=== PATIENT | male | born 1995 | race Caucasian/White ===

== ENCOUNTER 2017-10-18 13:50 | Emergency (ER) | payer OTHER ==
[~2017-10-18] VITALS: Ht 177.8 cm; Wt 64.2 kg
[2017-10-18 14:03] VITALS: TEMP 37; Ht 177.8 cm; Wt 64.2 kg
[2017-10-18 14:10] VITALS: O2SAT 98
[2017-10-18] MEDS ORDERED: SODIUM CHLORIDE 0.9% 1000ML 1,000 ML IV STA (14:13)
[2017-10-18] MEDS ORDERED: ONDANSETRON INJ 2 MG/ML 2 ML VIAL IV STA (14:13)
[2017-10-18] MEDS ORDERED: LORAZEPAM 2 MG/ML 1 ML VIAL IV STA (14:13)
--- NOTE | 2017-10-18 14:15 | EMERGENCY ROOM VISIT NOTE ---
History Report prepared by Yuridia: Sweetie Gayle Under the Supervision of: Dr. Dileep Castro D.O. First contact with patient: 14:10 Chief Complaint: TACHYCARDIA Stated Complaint: RAPID HEART BEAT, SHAKY, DIZZY History of Present Illness The patient is a 22 year old male who presents to the Emergency Room with complaints of palpitations. The patient states that he was a class when he noticed an acute onset of palpitations and heart racing. He had chest pain and shortness of breath initially but this is since resolved. The patient admits that he took Adderall one orange pill at approximately oh 830 this morning. He also took 2 double shots of [employer] espresso. He also took another pill of Adderall last evening. This medication is not his medication however he was using to try to stay awake to study longer. The patient states his symptoms were very moderate to severe initially but they have since improved somewhat. He denies having any recent fevers or chills. He denies having any nausea or vomiting. The patient states that he has taken this medication before but feels he may have taken too much. He denies having any headaches. Source of History: patient Onset: earlier today Position: other (global) Symptom Intensity: moderate Quality: other (palpitations) Timing: other (persistent) Associated Symptoms: + chest pain, + SOB, No fevers, No chills, No headache , No nausea, No vomiting Review of Systems See HPI for pertinent positives & negatives. A total of 10 systems reviewed and were otherwise negative. Past Medical & Surgical Medical Problems: (1) Asthma (2) Diabetes Family History No pertinent family history stated. Social History Smoking Status: Current Every Day Smoker Smokeless Tobacco Use: Yes Alcohol Use: occasionally Drug Use: marijuana Marital Status: single Housing Status: lives with roommate Current/Historical Medications Scheduled Insulin Aspart (Novolog), 3 UNITS SQ 15 grams of carbs Insulin Glargine (Lantus Solostar), 3 UNITS SC AMPM Allergies Coded Allergies: No Known Allergies (Unverified , 10/18/17) Physical Exam Vital Signs Date Time Temp Pulse Resp B/P (MAP) Pulse Ox O2 Delivery O2 Flow Rate FiO2 10/18/17 16:23 97 16 133/86 100 10/18/17 15:22 95 20 109/94 99 Room Air 10/18/17 14:17 132 10/18/17 14:10 98 Room Air 10/18/17 14:03 37.0 163 18 153/79 99 Room Air Physical Exam GENERAL: Patient is awake and alert. He appears mildly anxious but comfortable. EYES: The conjunctivae are clear. The pupils dilated and reactive to light bilaterally. EARS, NOSE, MOUTH AND THROAT: The nose is without any evidence of any deformity. Mucous membranes are moist tongue is midline NECK: The neck is nontender and supple. RESPIRATORY: Normal respiratory effort is noted there is no evidence of wheezing rhonchi or rales CARDIOVASCULAR: Tachycardic rate with regular rhythm was noted. There was no definite murmur noted auscultation. GASTROINTESTINAL: The abdomen is soft. Bowel sounds are present in all quadrants. Abdomen is nontender MUSCULOSKELETAL/EXTREMITIES: There is no evidence of gross deformity full range of motion is noted in the hips and shoulders SKIN: There is no obvious evidence of any rash. There are no petechiae, pallor or cyanosis noted. NEUROLOGIC: Patient is awake alert and oriented x3 strength is symmetric patellar reflexes are 2+ bilaterally Medical Decision & Procedures ER Provider Diagnostic Interpretation: X-ray results as stated below per interpretation by me and the radiologist. CHEST ONE VIEW PORTABLE CLINICAL HISTORY: palpitations cardiac arrhythmia COMPARISON STUDY: No previous studies for comparison. FINDINGS: The bones soft tissues and hemidiaphragms are normal. The cardiomediastinal silhouette is normal. The lungs are clear. The pulmonary vasculature is normal. IMPRESSION: Negative chest. The above report was generated using voice recognition software. It may contain grammatical, syntax or spelling errors. Electronically signed by: Moncho Castillo M.D. 10/18/2017 2:50 PM Dictated Date/Time: 10/18/2017 2:50 PM Laboratory Results 10/18/17 14:30 Red Blood Count 5.37, Mean Corpuscular Volume 87.2, Mean Corpuscular Hemoglobin 31.7, Mean Corpuscular Hemoglobin Concent 36.3, Mean Platelet Volume 9.8, Neutrophils (%) (Auto) 76.0, Lymphocytes (%) (Auto) 14.5, Monocytes (%) (Auto) 7.3, Eosinophils (%) (Auto) 1.2, Basophils (%) (Auto) 0.6, Neutrophils # (Auto) 7.57, Lymphocytes # (Auto) 1.45, Monocytes # (Auto) 0.73, Eosinophils # (Auto) 0.12, Basophils # (Auto) 0.06 10/18/17 14:30 Test 10/18/17 14:30 10/18/17 15:30 White Blood Count 9.97 K/uL (4.8-10.8) Red Blood Count 5.37 M/uL (4.7-6.1) Hemoglobin 17.0 g/dL (14.0-18.0) Hematocrit 46.8 % (42-52) Mean Corpuscular Volume 87.2 fL (80-100) Mean Corpuscular Hemoglobin 31.7 pg (25-34) Mean Corpuscular Hemoglobin Concent 36.3 g/dl (32-36) Platelet Count 246 K/uL (130-400) Mean Platelet Volume 9.8 fL (7.4-10.4) Neutrophils (%) (Auto) 76.0 % Lymphocytes (%) (Auto) 14.5 % Monocytes (%) (Auto) 7.3 % Eosinophils (%) (Auto) 1.2 % Basophils (%) (Auto) 0.6 % Neutrophils # (Auto) 7.57 K/uL (1.4-6.5) Lymphocytes # (Auto) 1.45 K/uL (1.2-3.4) Monocytes # (Auto) 0.73 K/uL (0.11-0.59) Eosinophils # (Auto) 0.12 K/uL (0-0.5) Basophils # (Auto) 0.06 K/uL (0-0.2) RDW Standard Deviation 39.2 fL (36.4-46.3) RDW Coefficient of Variation 12.3 % (11.5-14.5) Immature Granulocyte % (Auto) 0.4 % Immature Granulocyte # (Auto) 0.04 K/uL (0.00-0.02) Anion Gap 11.0 mmol/L (3-11) Est Creatinine Clear Calc Drug Dose 87.0 ml/min Estimated GFR () 97.3 Estimated GFR (Non- 84.0 BUN/Creatinine Ratio 12.1 (10-20) Calcium Level 9.5 mg/dl (8.5-10.1) Magnesium Level 1.9 mg/dl (1.8-2.4) Total Bilirubin 0.7 mg/dl (0.2-1) Direct Bilirubin 0.2 mg/dl (0-0.2) Aspartate Amino Transf (AST/SGOT) 14 U/L (15-37) Alanine Aminotransferase (ALT/SGPT) 20 U/L (12-78) Alkaline Phosphatase 93 U/L (45-117) Total Creatine Kinase 141 U/L (39-308) Creatine Kinase MB 1.8 ng/ml (0.5-3.6) Creatine Kinase MB Ratio 1.3 (0-3.0) Troponin I < 0.015 ng/ml (0-0.045) Total Protein 8.0 gm/dl (6.4-8.2) Albumin 4.2 gm/dl (3.4-5.0) Lipase 52 U/L (73-393) Thyroid Stimulating Hormone (TSH) 3.020 uIu/ml (0.300-4.500) Urine Color DK YELLOW Urine Appearance CLEAR (CLEAR) Urine pH 5.5 (4.5-7.5) Urine Specific [place] 1.027 (1.000-1.030) Urine Protein 1+ (NEG) Urine Glucose (UA) NEG (NEG) Urine Ketones 3+ (NEG) Urine Occult Blood NEG (NEG) Urine Nitrite NEG (NEG) Urine Bilirubin NEG (NEG) Urine Urobilinogen NEG (NEG) Urine Leukocyte Esterase NEG (NEG) Urine WBC (Auto) 1-5 /hpf (0-5) Urine RBC (Auto) 0-4 /hpf (0-4) Urine Hyaline Casts (Auto) 5-10 /lpf (0-5) Urine Epithelial Cells (Auto) 10-20 /lpf (0-5) Urine Bacteria (Auto) NEG (NEG) Urine Pathogenic Casts /lpf (0) Urine Mucus PRESENT (NONE PRSENT) Laboratory results per my review. Medications Administered Medications (Trade) Dose Ordered Sig/Fay Route Start Time Stop Time Status Last Admin Dose Admin Sodium Chloride 1,000 ml @ 999 mls/hr Q1H1M STAT IV 10/18/17 14:13 10/18/17 15:13 DC 10/18/17 14:32 999 MLS/HR Lorazepam (Ativan Inj) 1 mg NOW STAT IV 10/18/17 14:13 10/18/17 14:14 DC 10/18/17 14:50 1 MG ECG Indication: palpitations Rate (beats per minute): 131 Rhythm: sinus tachycardia Findings: no acute ischemic change, no ectopy Comparison ECG Date: no prior available ED Course 1412: The patient was evaluated in room A3. A complete history and physical examination were performed. 1413: Lorazepam 1 mg IV, NSS 1000 ml @ 999 mls/hr IV. 1455: I reevaluated the patient. He is feeling better. 1553: Upon reevaluation, the patient is resting comfortably. I discussed the results and treatment plan with him. He verbalized agreement of the treatment plan. He was discharged home. Medical Decision Prior records/ancillary studies reviewed. Triage Nursing notes reviewed. The patient's history was concerning for palpitations. Differential diagnosis: Etiologies such as premature contractions, electrolyte abnormality, cardiac dysrhythmia, thyroid dysfunction, pulmonary embolism, infection, gastrointestinal, as well as others were entertained. The patient is a 22-year-old male who presented to the emergency department for an evaluation of palpitations. The patient recently took caffeine supplements as well as Adderall. He states he started developing palpitations and anxiety earlier in the day class. The patient arrived at the emergency apartment by ambulance. He was treated with IV fluids and IV Ativan. On subsequent reevaluation he was feeling much better. His tachycardia had resolved. I discussed the patient's laboratory and radiographic studies with him. At this time I recommended that he avoid any other medications that are not prescribed for him. He was also encouraged to call his primary care physician for recheck. Is also encouraged to avoid any further alcohol beverages and return to the emergency department immediately if symptoms change worsen or the need arises. Medication Reconcilliation Current Medication List: was personally reviewed by me Blood Pressure Screening Patient's blood pressure: Normal blood pressure Blood pressure disposition: Did not require urgent referral Impression Primary Impression: Palpitations Additional Impressions: Sinus tachycardia Medication reaction Scribe Attestation The scribe's documentation has been prepared under my direction and personally reviewed by me in its entirety. I confirm that the note above accurately reflects all work, treatment, procedures, and medical decision making performed by me. Departure Information Dispostion Home / Self-Care Referrals No Doctor, Assigned (PCP) [facility] Forms HOME CARE DOCUMENTATION FORM, IMPORTANT VISIT INFORMATION, WORK / SCHOOL INSTRUCTIONS Patient Instructions Heart Palpitations, My [facility] Additional Instructions Continue to drink plenty of clear liquids. Follow-up with [facility] this week for reevaluation. Rest and avoid any strenuous activity. Only take medications that are prescribed for you. Avoid any further caffeine intake for the next 24 hours and then only drink caffeinated beverages in moderation. Return to the emergency department immediately if symptoms change worsen or the need arises. Problem Qualifiers Additional Impressions: Medication reaction Encounter type: initial encounter Qualified Codes: T88.7XXA - Unspecified adverse effect of drug or medicament, initial encounter
--- NOTE | 2017-10-18 14:51 | DIAGNOSTIC IMAGING REPORT ---
CHEST ONE VIEW PORTABLE CLINICAL HISTORY: palpitations cardiac arrhythmia COMPARISON STUDY: No previous studies for comparison. FINDINGS: The bones soft tissues and hemidiaphragms are normal. The cardiomediastinal silhouette is normal. The lungs are clear. The pulmonary vasculature is normal. IMPRESSION: Negative chest. The above report was generated using voice recognition software. It may contain grammatical, syntax or spelling errors. Electronically signed by: Moncho Castillo M.D. 10/18/2017 2:50 PM Dictated Date/Time: 10/18/2017 2:50 PM
[2017-10-18 14:57] LABS: BASO % 0.6 %; BASO ABS # 0.06 K/uL (0-0.2); COMPLETE YES; EOS % 1.2 %; HEMATOCRIT 46.8 % (42-52); IG% 0.4 %; LYMPH % 14.5 %; LYMPH ABS # 1.45 K/uL (1.2-3.4); MEAN CELL VOLUME 87.2 fL (80-100); MEAN CORPUSCULAR HEMOGLOBIN 31.7 pg (25-34); MEAN CORPUSCULAR HGB CONC 36.3 g/dl (32-36); MEAN PLATELET VOLUME 9.8 fL (7.4-10.4); MONO % 7.3 %; PLATELET COUNT 246 K/uL (130-400); RED BLOOD COUNT 5.37 M/uL (4.7-6.1); WHITE BLOOD COUNT 9.97 K/uL (4.8-10.8)
[2017-10-18 15:13] LABS: ALT/SGPT 20 U/L (12-78); AST/SGOT 14 U/L (15-37); BLOOD UREA NITROGEN 15 mg/dl (7-18); BUN/CREATININE RATIO 12.1 (10-20); CALCIUM 9.5 mg/dl (8.5-10.1); CARBON DIOXIDE 23 mmol/L (21-32); CHLORIDE 101 mmol/L (98-107); CREATININE 1.23 mg/dl (0.60-1.40); GLUCOSE 215 mg/dl (70-99); MAGNESIUM 1.9 mg/dl (1.8-2.4); POTASSIUM 3.5 mmol/L (3.5-5.1); SODIUM 135 mmol/L (136-145)
[2017-10-18] MEDS ORDERED: INSDGIPEN SC (15:13)
[2017-10-18] MEDS ORDERED: NVLG SQ (15:13)
[2017-10-18 15:21] LABS: ALKALINE PHOSPHATASE 93 U/L (45-117); CKMB/CK RATIO 1.3 (0-3.0)
[2017-10-18 15:40] LABS: URINE APPEARANCE CLEAR (CLEAR); URINE BILIRUBIN NEG (NEG); URINE COLOR DK YELLOW; URINE NITRITE NEG (NEG); URINE PH 5.5 (4.5-7.5); URINE SPECIFIC GRAVITY 1.027 (1.000-1.030); UROBILINOGEN NEG (NEG)
[2017-10-18 15:42] LABS: MANUAL MICROSCOPIC REQUIRED? NO; REVIEW REQ? YES
[2017-10-18 15:49] LABS: URINE MUCUS PRESENT (NONE PRSENT)
[2017-10-18 16:23] VITALS: BP 133/86; PULSE 97; O2SAT 100
== END 2017-10-18 16:22 | disposition home or self-care (01) ==
LOC: C.EDB 13:54 → C.EDA 16:22
DX: R00.2 Palpitations (principal); T43.605A Adverse effect of unspecified psychostimulants, initial encounter; J45.909 Unspecified asthma, uncomplicated; E11.9 Type 2 diabetes mellitus without complications; F17.210 Nicotine dependence, cigarettes, uncomplicated; Z79.4 Long term (current) use of insulin

== ENCOUNTER 2018-01-19 10:46 | Emergency (ER) | payer OTHER ==
[~2018-01-19] VITALS: Ht 180.3 cm; Wt 68.6 kg
[~2018-01-19 10:46] MED LIST: INSDGIPEN SC; NVLG SQ
[2018-01-19 10:50] VITALS: TEMP 36.8
[2018-01-19] MEDS ORDERED: SODIUM CHLORIDE 0.9% 1000ML 1,000 ML IV STA (10:57)
[2018-01-19] MEDS ORDERED: LORAZEPAM 2 MG/ML 1 ML VIAL IV STA (10:57)
[2018-01-19 10:59] VITALS: Ht 180.3 cm; Wt 68.6 kg
--- NOTE | 2018-01-19 11:14 | EMERGENCY ROOM VISIT NOTE ---
History Report prepared by Yuridia: Milton Cesar Under the Supervision of: Dr. Dileep Castro D.O. First contact with patient: 10:53 Chief Complaint: TACHYCARDIA Stated Complaint: RAPID HEARTBEAT,DIZZY Nursing Triage Summary: Pt states, "My heart is beating really fast. I was taking an exam. I got really dizzy and didn't feel well." Denies SOB. "A little bit of pain in chest." Sx began approx 1015. States one other time, was found to be "too much caffeine and adderall." Took an adderall this morning, did have some coffee. Pt states he is not rx prescribed. History of Present Illness The patient is a 22 year old male who presents to the Emergency Room with complaints of a rapid heartbeat that he first noticed at 1015, 45 minutes ago. The patient admits that he took 20 mg of Adderall last night, roughly 7 hours ago and an additional 20 mg this morning at 0800, 3 hours ago. The Patient also notes drinking roughly 4 cups of coffee this morning. The Adderall is not his prescription. He denies any significant chest pain or shortness of breath. The patient has Type 1 diabetes and his sugar was 89 this morning. Review of Systems See HPI for pertinent positives & negatives. A total of 10 systems reviewed and were otherwise negative. Past Medical & Surgical Medical Problems: (1) Asthma (2) Diabetes Family History Diabetes mellitus Social History Smoking Status: Current Some Day Smoker Alcohol Use: occasionally Drug Use: marijuana Marital Status: single Housing Status: lives with roommate Current/Historical Medications Scheduled Insulin Aspart (Novolog), 3 UNITS SQ 15 grams of carbs Insulin Glargine (Lantus Solostar), 30 UNITS SC HS Allergies Coded Allergies: No Known Allergies (Unverified , 01/19/18) Physical Exam Vital Signs Date Time Temp Pulse Resp B/P (MAP) Pulse Ox O2 Delivery O2 Flow Rate FiO2 01/19/18 12:28 88 16 149/87 98 Room Air 01/19/18 11:30 100 Room Air 01/19/18 11:30 100 Room Air 01/19/18 11:10 116 01/19/18 10:50 36.8 137 20 144/80 96 Room Air Physical Exam GENERAL: Patient is awake, alert, and in no acute distress. Patient is somewhat anxious appearing and uncomfortable. EYES: The conjunctivae are clear. The pupils are round and reactive. EARS, NOSE, MOUTH AND THROAT: The nose is without any evidence of any deformity. Mucous membranes are moist tongue is midline NECK: The neck is nontender and supple. RESPIRATORY: Normal respiratory effort is noted there is no evidence of wheezing rhonchi or rales CARDIOVASCULAR: Tachycardic rate but regular rhythm noted there no murmurs rubs or gallops normal S1 normal S2 GASTROINTESTINAL: The abdomen is soft. Bowel sounds are present in all quadrants. Abdomen is nontender MUSCULOSKELETAL/EXTREMITIES: There is no evidence of gross deformity full range of motion is noted in the hips and shoulders SKIN: There is no obvious evidence of any rash. There are no petechiae, pallor or cyanosis noted. NEUROLOGIC: Patient is awake alert and oriented x3 strength is symmetric patellar reflexes are 2+ bilaterally Medical Decision & Procedures ER Provider Diagnostic Interpretation: Radiology results as stated below per my review and radiologist interpretation: CHEST ONE VIEW PORTABLE CLINICAL HISTORY: EVALUATE RESPIRATORY DISTRESS.DYSPNEA dyspnea COMPARISON STUDY: 10/18/2017 FINDINGS: The bones soft tissues and hemidiaphragms are normal. The cardiomediastinal silhouette is normal. The lungs are clear. The pulmonary vasculature is normal. IMPRESSION: Negative chest. The above report was generated using voice recognition software. It may contain grammatical, syntax or spelling errors. Electronically signed by: Moncho Castillo M.D. 01/19/2018 11:23 AM Dictated Date/Time: 01/19/2018 11:23 AM Laboratory Results 01/19/18 11:10 Red Blood Count 5.29, Mean Corpuscular Volume 87.5, Mean Corpuscular Hemoglobin 31.8, Mean Corpuscular Hemoglobin Concent 36.3, Mean Platelet Volume 9.7, Neutrophils (%) (Auto) 72.9, Lymphocytes (%) (Auto) 13.8, Monocytes (%) (Auto) 9.0, Eosinophils (%) (Auto) 3.6, Basophils (%) (Auto) 0.5, Neutrophils # (Auto) 6.16, Lymphocytes # (Auto) 1.17, Monocytes # (Auto) 0.76, Eosinophils # (Auto) 0.30, Basophils # (Auto) 0.04 01/19/18 11:10 Test 01/19/18 11:10 01/19/18 11:21 White Blood Count 8.45 K/uL (4.8-10.8) Red Blood Count 5.29 M/uL (4.7-6.1) Hemoglobin 16.8 g/dL (14.0-18.0) Hematocrit 46.3 % (42-52) Mean Corpuscular Volume 87.5 fL (80-100) Mean Corpuscular Hemoglobin 31.8 pg (25-34) Mean Corpuscular Hemoglobin Concent 36.3 g/dl (32-36) Platelet Count 219 K/uL (130-400) Mean Platelet Volume 9.7 fL (7.4-10.4) Neutrophils (%) (Auto) 72.9 % Lymphocytes (%) (Auto) 13.8 % Monocytes (%) (Auto) 9.0 % Eosinophils (%) (Auto) 3.6 % Basophils (%) (Auto) 0.5 % Neutrophils # (Auto) 6.16 K/uL (1.4-6.5) Lymphocytes # (Auto) 1.17 K/uL (1.2-3.4) Monocytes # (Auto) 0.76 K/uL (0.11-0.59) Eosinophils # (Auto) 0.30 K/uL (0-0.5) Basophils # (Auto) 0.04 K/uL (0-0.2) RDW Standard Deviation 40.5 fL (36.4-46.3) RDW Coefficient of Variation 12.6 % (11.5-14.5) Immature Granulocyte % (Auto) 0.2 % Immature Granulocyte # (Auto) 0.02 K/uL (0.00-0.02) Prothrombin Time 11.5 SECONDS (9.0-12.0) Prothromb Time International Ratio 1.1 (0.9-1.1) Activated Partial Thromboplast Time 25.9 SECONDS (21.0-31.0) Partial Thromboplastin Ratio 1.0 Anion Gap 9.0 mmol/L (3-11) Est Creatinine Clear Calc Drug Dose 96.9 ml/min Estimated GFR () 102.3 Estimated GFR (Non- 88.3 BUN/Creatinine Ratio 15.4 (10-20) Calcium Level 9.3 mg/dl (8.5-10.1) Magnesium Level 2.0 mg/dl (1.8-2.4) Total Bilirubin 0.5 mg/dl (0.2-1) Aspartate Amino Transf (AST/SGOT) 20 U/L (15-37) Alanine Aminotransferase (ALT/SGPT) 26 U/L (12-78) Alkaline Phosphatase 98 U/L (45-117) Total Creatine Kinase 200 U/L (39-308) Creatine Kinase MB 2.2 ng/ml (0.5-3.6) Creatine Kinase MB Ratio 1.1 (0-3.0) Troponin I < 0.015 ng/ml (0-0.045) Total Protein 7.7 gm/dl (6.4-8.2) Albumin 4.4 gm/dl (3.4-5.0) Globulin 3.3 gm/dl (2.5-4.0) Albumin/Globulin Ratio 1.3 (0.9-2) Thyroid Stimulating Hormone (TSH) 2.440 uIu/ml (0.300-4.500) Free Thyroxine 1.26 ng/dl (0.80-1.60) Bedside D-Dimer 65 ng/mlFEU (0-450) Laboratory results per my review. Medications Administered Medications (Trade) Dose Ordered Sig/Fay Route Start Time Stop Time Status Last Admin Dose Admin Sodium Chloride 1,000 ml @ 999 mls/hr Q1H1M STAT IV 01/19/18 10:57 01/19/18 11:57 DC 01/19/18 10:57 999 MLS/HR Lorazepam (Ativan Inj) 0.5 mg NOW STAT IV 01/19/18 10:57 01/19/18 10:59 DC 01/19/18 10:57 0.5 MG ECG Per My Interpretation Indication: tachycardia Rate (beats per minute): 124 Findings: other (No PVCs, no ST elevations/depressions) Comparison ECG Date: 10/18/2017 Change: no significant change ED Course 1054: The patient was evaluated in room B6. A complete history and physical examination were performed. 1057: Ordered Ativan 0.5 mg IV, Sodium Chloride 1000 mL @ 999 mL/hr IV. 1213: Upon reevaluation, the patient is resting in bed. I discussed the results and treatment plan with him. He verbalized agreement of the treatment plan. The patient was discharged home. Medical Decision Differential diagnosis: Etiologies such as premature contractions, electrolyte abnormality, cardiac dysrhythmia, thyroid dysfunction, pulmonary embolism, infection, gastrointestinal, as well as others were entertained. Nursing notes reviewed. The patient is a 22-year-old male who presented to the emergency department with palpitations. The patient was found to have signs of sinus tachycardia. He admitted to drinking a larger amount than usual of caffeine as well as taking prescription Adderall to stay awake to study for a test which he had today. The patient was treated with IV fluids and IV Ativan in the emergency department. He was reevaluated multiple times. On subsequent reevaluation he was feeling much better was found to be in normal sinus rhythm. I discussed patient's laboratory and radiographic studies with him. He was encouraged to continue drinking plenty clear liquids and avoid any further caffeinated beverages. He was also encouraged to take only medications which are prescribed to him. Otherwise he was encouraged to return to the emergency department immediately if symptoms change worsen or the need arises. Medication Reconcilliation Current Medication List: was personally reviewed by me Blood Pressure Screening Patient's blood pressure: Elevated blood pressure Blood pressure disposition: Elevated BP felt to be situational Impression Primary Impression: Palpitations Additional Impressions: Sinus tachycardia Medication adverse effect Scribe Attestation The scribe's documentation has been prepared under my direction and personally reviewed by me in its entirety. I confirm that the note above accurately reflects all work, treatment, procedures, and medical decision making performed by me. Departure Information Dispostion Home / Self-Care Referrals No Doctor, Assigned (PCP) Forms HOME CARE DOCUMENTATION FORM, IMPORTANT VISIT INFORMATION, WORK / SCHOOL INSTRUCTIONS Patient Instructions My [facility] Additional Instructions Continue all medications only as prescribed. Only take medications that are prescribed for you. Drink plenty clear liquids. Rest and avoid any strenuous activity. Return to the emergency department immediately if symptoms change worsen or the need arises. Problem Qualifiers Additional Impressions: Medication adverse effect Encounter type: initial encounter Qualified Codes: T88.7XXA - Unspecified adverse effect of drug or medicament, initial encounter
--- NOTE | 2018-01-19 11:25 | DIAGNOSTIC IMAGING REPORT ---
CHEST ONE VIEW PORTABLE CLINICAL HISTORY: EVALUATE RESPIRATORY DISTRESS.DYSPNEA dyspnea COMPARISON STUDY: 10/18/2017 FINDINGS: The bones soft tissues and hemidiaphragms are normal. The cardiomediastinal silhouette is normal. The lungs are clear. The pulmonary vasculature is normal. IMPRESSION: Negative chest. The above report was generated using voice recognition software. It may contain grammatical, syntax or spelling errors. Electronically signed by: Moncho Castillo M.D. 01/19/2018 11:23 AM Dictated Date/Time: 01/19/2018 11:23 AM
[2018-01-19 11:29] LABS: BASO % 0.5 %; BASO ABS # 0.04 K/uL (0-0.2); EOS % 3.6 %; HEMATOCRIT 46.3 % (42-52); HEMOGLOBIN 16.8 g/dL (14.0-18.0); IG# 0.02 K/uL (0.00-0.02); LYMPH % 13.8 %; LYMPH ABS # 1.17 K/uL (1.2-3.4); MEAN CELL VOLUME 87.5 fL (80-100); MEAN CORPUSCULAR HEMOGLOBIN 31.8 pg (25-34); MEAN CORPUSCULAR HGB CONC 36.3 g/dl (32-36); MEAN PLATELET VOLUME 9.7 fL (7.4-10.4); MONO ABS # 0.76 K/uL (0.11-0.59); NEUT % 72.9 %; NEUT ABS # 6.16 K/uL (1.4-6.5); PLATELET COUNT 219 K/uL (130-400); RED CELL DISTRIBUTION WIDTH CV 12.6 % (11.5-14.5); RED CELL DISTRIBUTION WIDTH SD 40.5 fL (36.4-46.3); WHITE BLOOD COUNT 8.45 K/uL (4.8-10.8)
[2018-01-19 11:30] VITALS: O2SAT 100
[2018-01-19 11:37] LABS: INR 1.1 (0.9-1.1); PTT PATIENT 25.9 SECONDS (21.0-31.0)
[2018-01-19 11:48] LABS: ALBUMIN 4.4 gm/dl (3.4-5.0); ALT/SGPT 26 U/L (12-78); BLOOD UREA NITROGEN 18 mg/dl (7-18); CALCIUM 9.3 mg/dl (8.5-10.1); CARBON DIOXIDE 24 mmol/L (21-32); CREATININE 1.18 mg/dl (0.60-1.40); GLUCOSE 226 mg/dl (70-99); POTASSIUM 3.5 mmol/L (3.5-5.1); SODIUM 135 mmol/L (136-145)
[2018-01-19 11:57] LABS: ALKALINE PHOSPHATASE 98 U/L (45-117); AST/SGOT 20 U/L (15-37); CKMB 2.2 ng/ml (0.5-3.6); TOTAL PROTEIN 7.7 gm/dl (6.4-8.2)
[2018-01-19 12:28] VITALS: BP 149/87; PULSE 88; O2SAT 98
== END 2018-01-19 12:41 | disposition home or self-care (01) ==
LOC: C.EDB 10:48
DX: R00.2 Palpitations (principal); R00.0 Tachycardia, unspecified; T43.695A Adverse effect of other psychostimulants, initial encounter; E10.9 Type 1 diabetes mellitus without complications; J45.909 Unspecified asthma, uncomplicated; Z83.3 Family history of diabetes mellitus; F17.210 Nicotine dependence, cigarettes, uncomplicated; Z79.4 Long term (current) use of insulin